=== PATIENT | female | born 1990 | race African-American/Black ===

== ENCOUNTER 2018-07-08 22:53 | Emergency (ER) | payer OTHER ==
[~2018-07-08] VITALS: Ht 170.2 cm; Wt 64.4 kg
[2018-07-08 23:56] LABS: ABSOLUTE NEUTROPHILS 6.1 thou/uL (1.4-8.2); BASOPHILS 0.6 % (0.0-2.0); EOSINOPHILS 1.7 % (0.0-3.0); LYMPHOCYTES 28.9 % (24.0-44.0); MCH 28.8 pg (26.0-34.0); MCHC 33.2 g/dL (28.0-37.0); MCV 86.9 fL (80.0-100.0); MONOCYTES 8.8 % (1.0-8.0); PLATELET COUNT 251 thou/uL (150-400); RBC 4.15 mil/uL (4.20-5.00); RDW 17.3 % (10.5-14.5); WBC 10.1 thou/uL (4.0-11.0)
[2018-07-08 23:58] LABS: ANION GAP 9 mmol/L (7-16); BUN 16 mg/dL (7-18); CALCIUM 9.3 mg/dL (8.5-10.1); CHLORIDE 102 mmol/L (98-107); CO2 28 mmol/L (21-32); CREATININE 0.8 mg/dL (0.6-1.0); GLUCOSE 90 mg/dL (74-106); POTASSIUM 3.6 mmol/L (3.5-5.1); SODIUM 139 mmol/L (136-145)
[2018-07-09 00:08] LABS: ALBUMIN 3.6 g/dL (3.4-5.0); DIRECT BILIRUBIN < 0.1 mg/dL (<0.1-0.3); LIPASE 192 U/L (73-393); SGOT 23 U/L (15-37); SGPT 30 U/L (30-65); TOTAL BILIRUBIN 0.2 mg/dL (<0.1-1.0); TOTAL PROTEIN 7.2 g/dL (6.4-8.2); TROPONIN-I <0.06 ng/mL (<0.06)
[2018-07-09] MEDS ORDERED: BENADRYL A12.5 MG/5 PO (02:40)
[2018-07-09] MEDS ORDERED: LIDOCAINE40 MG/1 ML PO (02:40)
[2018-07-09 03:15] VITALS: BP 114/61
--- NOTE | 2018-07-11 22:24 | EKG ---
[place] [address] [facility] [employer] [place] [address] ELECTROCARDIOGRAM REPORT Name: INO MCALLISTER Room [facility]: [id number] ������������������ Admission: 07/08/18 ������������������ Attend Phys: Discharge: 07/09/18 ������������������ Date of : 86 Report #: [id number] ����������������������������������������������������������������� [id number] THIS REPORT FOR: //name// [facility] ED Test Date: 2018-07-08 Test Time: 23:13:53 Pat Name: INO MCALLISTER Department: Room: Gender: F Night Nurse: [facility] : 1990 Requested By: Eileen Ryan Order Number: [id number] MD: Jimmy Schilling Measurements Intervals [place] Rate: 62 P: 61 IA: 140 QRS: -6 QRSD: 113 T: -8 QT: 426 QTc: 433 Interpretive Statements Sinus rhythm RSR' in V1 or V2, probably normal variant Probable left ventricular hypertrophy Borderline T abnormalities, inferior leads Baseline wander in lead(s) II,III,aVF No previous ECG available for comparison Electronically Signed On 07-11-2018 22:23:55 CDT by Jimmy Schilling [email or web address] ��������������������������������������������� <ELECTRONICALLY SIGNED> ���������������������������������������� By: Jimmy Schilling MD ��������������������������������������������� 07/11/18 2223 12 12 Jimmy Schilling MD /EPI
== END 2018-07-09 03:36 | disposition home or self-care (01) ==
LOC: ER 22:53
PROVIDERS: Emergency Medicine
DX: R07.89 Other chest pain (principal); F41.0 Panic disorder [episodic paroxysmal anxiety]